=== PATIENT | female | born 1990 | race American Indian/Alaskan Native ===

== ENCOUNTER 2017-10-14 09:23 | Emergency (ER) | payer MEDICAID ==
[2017-10-14] MEDS ORDERED: ZOFRAN IV ONE (10:06)
[2017-10-14] MEDS ORDERED: SUBLIMAZE IV ONE (10:06)
[2017-10-14] MEDS ORDERED: NACL 0.9% 1000 ML 1,000 ML IV ONE ×2 (10:06→13:07)
--- NOTE | 2017-10-14 10:12 | Emergency Department Report ---
HPI - General Chief Complaint: Abdominal Pain Time Seen by Provider: 10/14/17 09:54 - HPI HPI: Room 19 The patient is a 27-year-old female presenting with chief complaint of fever chest pain and abdominal pain. The patient is currently at a hospital being treated for schizophrenia/bipolar disorder. The patient states last night she developed some periumbilical abdominal pain. This morning the patient states she had burning substernal chest pain in addition to fever. The patient does admit to nausea and vomiting 1. The patient is to dysuria and hematuria for the past 2 days. Patient also complains of sharp pains in her legs. The patient admits to cough that is productive of yellow sputum. Location: [See above] Duration: [See above] Quality: Burning Severity: 07/04 Modifying factors: [see above] Context: [see above] Mode of transportation: [not driving] ED Past Medical Hx - Past Medical History Previous Medical History?: Yes Additional medical history: schizophrenia, bi polar - Surgical History Past Surgical History?: No - Family History Family history: no significant - Social History Smoking Status: Never Smoker Substance Use Type: None (denies illicit drug use) - Medications Home Medications: Home Medications Medication Instructions Recorded Confirmed Last Taken Type Azithromycin [Zithromax Z-SERENITY] 0 mg PO DAILY #6 tab 10/14/17 Unknown Rx Promethazine [Phenergan TAB] 25 mg PO Q6HR PRN #20 tab 10/14/17 Unknown Rx ED Review of Systems ROS: Stated complaint: TACHYCARDIA Other details as noted in HPI Constitutional: fever Respiratory: cough Gastrointestinal: abdominal pain, nausea, vomiting, diarrhea Genitourinary: dysuria, hematuria Physical Exam - Physical Exam Vital Signs: Vital Signs 10/14/17 09:47 Temperature 98.5 F Pulse Rate 110 H Respiratory 16 Rate Blood Pressure 103/65 O2 Sat by Pulse 100 Oximetry Vital Signs 10/14/17 10/14/17 10/14/17 09:47 12:43 13:08 Temperature 98.5 F 99.6 F Pulse Rate 110 H 111 H 79 Respiratory 16 16 Rate Blood Pressure 103/65 Blood Pressure 109/72 [Left] O2 Sat by Pulse 100 100 Oximetry Physical Exam: GENERAL: The patient is well-developed well-nourished female lying on stretcher not appearing to be in acute distress. [] HEENT: Normocephalic. Atraumatic. Extraocular motions are intact. Patient has moist mucous membranes. NECK: Supple. Trachea midline CHEST/LUNGS: Clear to auscultation. There is no respiratory distress noted. HEART/CARDIOVASCULAR: Regular. There is tachycardia. There is no gallop rub or murmur. ABDOMEN: Abdomen is soft, with a diffuse discomfort to palpation greatest in the left lower quadrant. Patient has normal bowel sounds. There is no abdominal distention. SKIN: There is no rash. There is no edema. There is no diaphoresis. NEURO: The patient is awake, alert, and oriented. The patient is cooperative. The patient has normal speech MUSCULOSKELETAL: There is no evidence of acute injury. ED Course Vital Signs 10/14/17 09:47 Temperature 98.5 F Pulse Rate 110 H Respiratory 16 Rate Blood Pressure 103/65 O2 Sat by Pulse 100 Oximetry ED Medical Decision Making - Lab Data Result diagrams: 10/14/17 10:06 10/14/17 10:06 - Radiology Data Radiology results: report reviewed (CT chest, CT abdomen and pelvis), image reviewed (CT chest, CT abdomen and pelvis) CTA CHEST: HISTORY: chest pain. COMPARISON: none. TECHNIQUE: Helical CT in 1.25mm intervals following IV contrast. Pulmonary embolus protocol. Sagittal and coronal reformatted images. Rotational MIP images. FINDINGS: Contrast bolus is satisfactory. No pulmonary embolus is identified. Thyroid gland: Normal. Tracheobronchial tree: Normal. Esophagus: Normal. Heart: The heart appears mildly enlarged. Pericardium: Normal. Mediastinum: Normal. Lung Dias: normal. Pleural Spaces: Normal. Musculoskeletal: Normal. IMPRESSION: No evidence for pulmonary embolus. Borderline to mild cardiomegaly. Transcribed By: TTR Dictated By: SOMMER SYED JR, MD Electronically Authenticated By: SOMMER SYED JR, MD Signed Date/Time: 10/14/17 1246 DD/ 1244 TD/TT: 10/14/[address] ABDOMEN PELVIS WITH CONTRAST: HISTORY: Left lower quadrant abdominal pain. COMPARISON: none. TECHNIQUE: Helical CT in 1.25mm intervals following IV contrast. Sagittal and coronal reconstructions. FINDINGS: Lung bases: Normal. Liver: Normal. Biliary system: Normal. Pancreas: Normal. Spleen: Normal. Kidneys/ureters/bladder: Normal. Adrenal glands: Normal. Aorta: Normal. Intestines: There is a large amount of stool throughout the length of the colon. No evidence for obstruction or focal inflammation. Appendix: Normal. Pelvic viscera: uterus. No adnexal cyst or mass or inflammation. Ascites: None. Adenopathy: None. Musculoskeletal: Normal. IMPRESSION: No acute process is identified in the abdomen or pelvis. Constipation. Transcribed By: TTR Dictated By: SOMMER SYED JR, MD Electronically Authenticated By: SOMMER SYED JR, MD Signed Date/Time: 10/14/171247 DD/ 46 TD/TT: 10/14/171247 - Differential Diagnosis pyelonephritis, PE, pneumonia, costochondritis Critical care attestation.: If time is entered above; I have spent that time in minutes in the direct care of this critically ill patient, excluding procedure time. ED Disposition Clinical Impression: Bronchitis, acute Disposition: [id number]/TX-[id number] PSY HOSP/PSY UNIT Is pt being admited?: No Does the pt Need Aspirin: No Condition: Stable Instructions: Abdominal Pain (ED), Acute Bronchitis (ED) Additional Instructions: Return to the emergency department immediately should you develop worsening symptoms, fever, inability to tolerate food or liquid or any other concerns. Prescriptions: Azithromycin [Zithromax Z-SERENITY] 0 mg PO DAILY #6 tab Promethazine [Phenergan TAB] 25 mg PO Q6HR PRN #20 tab PRN Reason: Nausea Referrals: KANWAL MIN MD [Primary Care Provider] - 3-5 Days Time of Disposition: 13:10
[2017-10-14 10:15] LABS: Basophils % (Auto) 0.4 % (0.0-1.8); Eosinophils % (Auto) 0.1 % (0.0-4.3); Hematocrit 41.4 % (30.3-42.9); Hemoglobin 13.7 gm/dl (10.1-14.3); Lymphocytes # (Auto) 0.8 K/mm3 (1.2-5.4); Lymphocytes % (Auto) 10.7 % (13.4-35.0); Mean Corpuscular HGB Conc 33 % (30-34); Mean Corpuscular Hemoglobin 31 pg (28-32); Mean Corpuscular Volume 94 fl (79-97); Monocytes # (Auto) 0.7 K/mm3 (0.0-0.8); Monocytes % (Auto) 9.1 % (0.0-7.3); Platelet Count 262 K/mm3 (140-440); Red Blood Count 4.42 M/mm3 (3.65-5.03); Red Cell Distribution Width 15.2 % (13.2-15.2)
[2017-10-14 10:17] LABS: Bilirubin,Urine NEG (Negative); Blood,Urine MOD (Negative); Color,Urine Yellow (Yellow); Mucus,Urine FEW /HPF; Nitrite,Urine NEG (Negative); Protein,Urine <15 mg/dL mg/dL (Negative); Urobilinogen,Urine < 2.0 mg/dL (<2.0)
[2017-10-14 10:29] LABS: Alanine Aminotransferase 14 units/L (7-56); Albumin 3.5 g/dL (3.9-5); BUN/Creatinine Ratio 14; Blood Urea Nitrogen 10 mg/dL (7-17); Calcium 9.3 mg/dL (8.4-10.2); Hemolysis Index 9; Lipase 37 units/L (13-60)
[2017-10-14 10:33] LABS: HCG Qualitative,Urine Positive (Negative)
[2017-10-14 12:44] VITALS: BP 109/72
--- NOTE | 2017-10-14 12:52 | Cat Scan Report ---
CTA CHEST: HISTORY: chest pain. COMPARISON: none. TECHNIQUE: Helical CT in 1.25mm intervals following IV contrast. Pulmonary embolus protocol. Sagittal and coronal reformatted images. Rotational MIP images. FINDINGS: Contrast bolus is satisfactory. No pulmonary embolus is identified. Thyroid gland: Normal. Tracheobronchial tree: Normal. Esophagus: Normal. Heart: The heart appears mildly enlarged. Pericardium: Normal. Mediastinum: Normal. Lung Dias: normal. Pleural Spaces: Normal. Musculoskeletal: Normal. IMPRESSION: No evidence for pulmonary embolus. Borderline to mild cardiomegaly.
--- NOTE | 2017-10-14 12:53 | Cat Scan Report ---
CT ABDOMEN PELVIS WITH CONTRAST: HISTORY: Left lower quadrant abdominal pain. COMPARISON: none. TECHNIQUE: Helical CT in 1.25mm intervals following IV contrast. Sagittal and coronal reconstructions. FINDINGS: Lung bases: Normal. Liver: Normal. Biliary system: Normal. Pancreas: Normal. Spleen: Normal. Kidneys/ureters/bladder: Normal. Adrenal glands: Normal. Aorta: Normal. Intestines: There is a large amount of stool throughout the length of the colon. No evidence for obstruction or focal inflammation. Appendix: Normal. Pelvic viscera: uterus. No adnexal cyst or mass or inflammation. Ascites: None. Adenopathy: None. Musculoskeletal: Normal. IMPRESSION: No acute process is identified in the abdomen or pelvis. Constipation.
== END 2017-10-14 15:19 ==
LOC: ED 09:23
DX: J20.9 Acute bronchitis, unspecified (principal); F31.9 Bipolar disorder, unspecified; F20.9 Schizophrenia, unspecified
CPT/HCPCS: 36415; 71275; 74177; 80053; 81001; 81025; 82550; 83690; 84702; 85025; 85379; 87040; 96361; 96374; 96375; 99284; J2405; J3010; J7030; Q9967